=== PATIENT | female | born 1975 | race Caucasian/White ===

== ENCOUNTER → 2021-08-13 13:31 | Outpatient (BNVA) | payer BC, SELFPAY | PROVIDERS: Visit Provider Nurse Practitioner Family | DX: R60.9 Edema, unspecified (principal); I10 Essential (primary) hypertension; R53.83 Other fatigue; R63.8 Other symptoms and signs concerning food and fluid intake; E66.9 Obesity, unspecified | CPT/HCPCS: 80053; 80061; 82306; 84443 ==

== ENCOUNTER → 2021-09-25 10:17 | Outpatient (BNVA) | payer BC, SELFPAY | PROVIDERS: Visit Provider Family Medicine | DX: Z20.822 Contact with and (suspected) exposure to COVID-19 (principal) | CPT/HCPCS: 87635 ==

== ENCOUNTER → 2022-02-01 13:59 | Outpatient (BNVA) | payer BC, SELFPAY | PROVIDERS: Visit Provider Nurse Practitioner Family | DX: J06.9 Acute upper respiratory infection, unspecified (principal); J40 Bronchitis, not specified as acute or chronic; R05.9 Cough, unspecified; F41.9 Anxiety disorder, unspecified; E55.9 Vitamin D deficiency, unspecified; I10 Essential (primary) hypertension; Z84.0 Family history of diseases of the skin and subcutaneous tissue; M25.50 Pain in unspecified joint; M79.10 Myalgia, unspecified site; R53.83 Other fatigue; J30.2 Other seasonal allergic rhinitis | CPT/HCPCS: 80053; 82306; 85651; 86140; 86200; 86431; 86705; 86706; 86709; 86803; 87340 ==

== ENCOUNTER → 2022-06-09 10:39 | Outpatient (BNVA) | payer BC, SELFPAY | PROVIDERS: Visit Provider Nurse Practitioner Family | DX: E55.9 Vitamin D deficiency, unspecified (principal); K21.9 Gastro-esophageal reflux disease without esophagitis; F41.9 Anxiety disorder, unspecified; I10 Essential (primary) hypertension; R53.83 Other fatigue; E66.9 Obesity, unspecified; M25.50 Pain in unspecified joint; M79.10 Myalgia, unspecified site; Z12.31 Encounter for screening mammogram for malignant neoplasm of breast; Z12.11 Encounter for screening for malignant neoplasm of colon; L98.9 Disorder of the skin and subcutaneous tissue, unspecified; J30.2 Other seasonal allergic rhinitis | CPT/HCPCS: 80053; 80061; 82306; 84443; 85025 ==

== ENCOUNTER → 2022-07-16 10:34 | Outpatient (BNVA) | payer BC, SELFPAY | PROVIDERS: Visit Provider Nurse Practitioner Family | DX: Z11.1 Encounter for screening for respiratory tuberculosis (principal) | CPT/HCPCS: 71046 ==

== ENCOUNTER 2022-09-16 06:00 | Outpatient (CLI) | payer BC, SELFPAY | END 2022-09-16 23:59 | disposition home or self-care (01) | LOC: RAD 09-29 13:22 | PROVIDERS: Visit Provider Nurse Practitioner Family | DX: M25.512 Pain in left shoulder (principal) | CPT/HCPCS: 73030 ==

== ENCOUNTER → 2022-10-13 09:02 | Outpatient (BNVA) | payer BC, SELFPAY | PROVIDERS: PCP Nurse Practitioner Family; Visit Provider Nurse Practitioner Family | DX: J32.9 Chronic sinusitis, unspecified (principal); K04.7 Periapical abscess without sinus; I10 Essential (primary) hypertension; E78.2 Mixed hyperlipidemia; J30.2 Other seasonal allergic rhinitis; E55.9 Vitamin D deficiency, unspecified; F41.9 Anxiety disorder, unspecified | CPT/HCPCS: 80053; 80061; 82306 ==

== ENCOUNTER → 2023-04-27 09:28 | Outpatient (BNVA) | payer BC, SELFPAY | PROVIDERS: PCP Nurse Practitioner Family; Visit Provider Nurse Practitioner Family | DX: R05.9 Cough, unspecified (principal); U07.1 COVID-19 | CPT/HCPCS: 87426 ==

== ENCOUNTER → 2023-06-10 11:47 | Outpatient (BNVA) | payer OTHER, SELFPAY | PROVIDERS: PCP Nurse Practitioner Family; Visit Provider Nurse Practitioner Family | DX: J06.9 Acute upper respiratory infection, unspecified (principal); F41.9 Anxiety disorder, unspecified; E55.9 Vitamin D deficiency, unspecified; M25.512 Pain in left shoulder; J30.2 Other seasonal allergic rhinitis; I10 Essential (primary) hypertension; K04.7 Periapical abscess without sinus; H66.92 Otitis media, unspecified, left ear | CPT/HCPCS: 87486; 87581; 87633 ==

== ENCOUNTER → 2023-08-30 09:18 | Outpatient (BNVA) | payer BC, SELFPAY | PROVIDERS: PCP Nurse Practitioner Family; Visit Provider Nurse Practitioner Family | DX: F41.9 Anxiety disorder, unspecified (principal); I10 Essential (primary) hypertension; E78.2 Mixed hyperlipidemia; E55.9 Vitamin D deficiency, unspecified; E66.9 Obesity, unspecified; R63.8 Other symptoms and signs concerning food and fluid intake; M25.512 Pain in left shoulder; J30.2 Other seasonal allergic rhinitis; K04.7 Periapical abscess without sinus | CPT/HCPCS: 80053; 80061; 82306; 84443 ==

== ENCOUNTER 2023-11-25 19:44 | Emergency (ER) | payer BC, SELFPAY ==
[2023-11-25 19:49] VITALS: BP 141/83; PULSE 82; RESP 18; TEMP 36.8; O2SAT 97
--- NOTE | 2023-11-25 20:03 | ED_ITS ---
HPI - Headache General: Chief Complaint: Headache Stated Complaint: sinus infection, dental pain, left ear pain Time Seen by Provider: 11/25/23 19:56 History of Present Illness: Patient presents to the ER with complaints of sore throat dental pain left maxillary sinusitis pressure ear pain said this is normal for her to get during this time year seasonal allergy flareup that she thinks may went to a bacterial sinusitis. She says she normally has to get steroids and antibiotic. Review of Systems General: Reports: 10 or more systems reviewed and unremarkable except in HPI and below PFSH ED PFSH: Medical History GERD (gastroesophageal reflux disease) Insomnia Anxiety Family History Mother , Brain Tumor/Melanoma No problems noted. Social History Smoking and tobacco/nicotine status: current every day tobacco/nicotine user (Smokes 1/2 pack a day) Female Reproductive History: Date of last menstrual period: 11/22/23 Physical Exam Const: COMMON NORMALS: no acute distress, average body habitus, patient oriented x3, no limitations, healthy appearing, alert and well nourished HENMT: COMMON NORMALS: normocephalic, atraumatic, hearing grossly normal bilaterally, external ears normal, EAC's normal, TM's normal bilaterally, moist oral mucous membranes and oropharynx normal HEAD & SCALP: normocephalic and atraumatic FACE & SINUS: Facial tenderness on exam of face and sinuses (Worse over left maxillary sinus) EXTERNAL EAR: Yes external ears normal EXTERNAL AUDITORY CANAL: EAC's normal TYMPANIC MEMBRANE: TM's normal bilaterally Neck/C-Spine: COMMON NORMALS: full ROM, no lymphadenopathy, supple, no meningeal signs, no JVD and Thyroid normal THYROID: Thyroid normal Chest: COMMONS NORMALS: normal inspection of the chest and normal palpation of entire chest wall Resp: COMMON NORMALS: normal respiratory effort, No retractions, No use of accessory muscles and clear to auscultation bilaterally AUSCULTATION: clear to auscultation bilaterally Cardio: COMMON NORMALS: no JVD, regular rate, regular rhythm, S1 normal heart sound present, S2 normal heart sound present, No gallops present (Cardio), No clicks present (Cardio), No murmurs present (Cardio) and No rub (Cardio) RATE: regular rate RHYTHM: regular rhythm HEART SOUNDS: S1 normal heart sound present and S2 normal heart sound present GI: COMMON NORMALS: Normal to inspection, nondistended, normoactive bowel sounds present, Soft to palpation, non-tender, No hepatosplenomegaly present and no masses PALPATION: Yes Soft to palpation and Yes No hepatosplenomegaly present Neuro: COMMON NORMALS: patient oriented x3 SENSORIUM/ORIENTATION: Yes alert MENINGEAL SIGNS: Yes no meningeal signs Course Vital Signs: Vital signs: Vital Signs Temperature 98.2 F 11/25/23 19:49 Pulse Rate 82 11/25/23 19:49 Respiratory Rate 18 11/25/23 19:49 Blood Pressure 141/83 11/25/23 19:49 Pulse Oximetry 97 11/25/23 19:49 Oxygen Delivery Me thod Room Air 11/25/23 19:49 MDM - Headache Medical Decision Making Patient presents to the ER with complaints of headache left maxillary facial sinusitis left ear pain. Gets this every year. Normally requires antibiotics and steroid. Patient be given Augmentin and Decadron in ER and will be sent home with prescription for Augmentin and prednisone. Patient to follow-up with her PCP within approximately 7 days for further evaluation treatment. Differential Diagnosis Likely sinusitis; Unlikely migraine, tension headache, subarachnoid hemorrhage, headache, meningitis or postconcussion syndrome Medical Records I reviewed the patient's medical records. Lab Data I reviewed the patient's lab results. No radiology studies performed this visit Discharge Plan Discharge Patient Disposition: Home Clinical Impression: Acute bacterial sinusitis Condition: Stable Prescriptions: New prednisone 50 mg tablet 50 mg PO DAILY Qty: 5 0RF amoxicillin-pot clavulanate 875-125 mg tablet 1 tab PO Q12H Qty: 20 0RF No Action tretinoin 0.1 % cream 1 applic topical DAILY Qty: 45 4RF Rx Instructions: Apply pea-sized amount to face, chest and back nightly. clobetasol 0.05 % solution 1 applic topical BID 14 Days Qty: 50 3RF Rx Instructions: Apply a few drops to itchy areas on scalp as needed. (DME) pen needle, diabetic [Advocate Pen Needle] 33 gauge x 5/32 needle See Rx Instructions .Route Qty: 100 2RF Rx Instructions: As directed buspirone 10 mg tablet 5 mg PO BID 90 Days Qty: 90 1RF cholecalciferol (vitamin D3) 250 mcg (10,000 unit) capsule 250 mcg PO DAILY 90 Days Qty: 90 1RF cyclobenzaprine 10 mg tablet 10 mg PO TID PRN (Reason: muscle spasm) Qty: 90 1RF diclofenac sodium [Voltaren Arthritis Pain] 1 % gel 4 g topical QID Qty: 100 4RF fexofenadine-pseudoephedrine [Kalli-D 12 Hour] 60-120 mg tablet extended release 12 hr 1 tab PO Q12H PRN (Reason: allergy symptoms) Qty: 30 0RF furosemide 20 mg tablet 20 mg PO DAILY 90 Days Qty: 90 1RF ibuprofen 800 mg tablet 800 mg PO TID Qty: 90 1RF triamterene-hydrochlorothiazid 75-50 mg tablet 1 tab PO DAILY Qty: 90 1RF Victoza 3-Toy 0.6 mg/0.1 mL (18 mg/3 mL) pen injector 3 mg SUBCUT Q24H 30 Days Qty: 15 2RF Discharge Orders: Discharge ED (Routine); Ordered 11/25/23 Ordered By: Willy Jeff Referrals: Giana Callaway NP [Primary Care Provider] - 1 week Patient Instructions: Sinusitis (ED) Activity Restrictions/Additional Instructions: Please take all your antibiotics and steroids as directed. Please follow-up with your primary care practitioner in the next 7 days for further evaluation treatment as needed. Coding Level of Care Code ED Breaker Oiler for Vishnu Xie
[2023-11-25] MEDS: dexamethasone 10 mg/mL INJ IM (20:26)
[2023-11-25] MEDS: amoxicillin-clav 875-125 mg Tablet 1 TAB PO (20:26)
[2023-11-25] MEDS: acetaminophen 500 mg Tablet 1000 MG PO (20:32)
== END 2023-11-25 20:59 | disposition home or self-care (01) ==
PROVIDERS: Emergency Provider Emergency Medicine; PCP Nurse Practitioner Family
DX: J01.90 Acute sinusitis, unspecified (principal); B96.89 Other specified bacterial agents as the cause of diseases classified elsewhere; F17.210 Nicotine dependence, cigarettes, uncomplicated
CPT/HCPCS: 96372; 99284; J1100

== ENCOUNTER 2024-03-19 17:14 | Emergency (ER) | payer BC, SELFPAY ==
[2024-03-19] VITALS (7 sets, daily range): BP systolic 125–164; BP diastolic 81–107; PULSE 77–88; RESP 14–19; TEMP 36.8; O2SAT 93–96; BMI 32.8
--- NOTE | 2024-03-19 17:20 | XRR_ITS ---
PROCEDURE INFORMATION: Exam: XR Chest Exam date and time: 03/19/2024 5:23 PM Age: 48 years old Clinical indication: Other: Weakness; Additional info: Cp TECHNIQUE: Imaging protocol: Radiologic exam of the chest. Views: 1 view. COMPARISON: CR XR chest 2V* [id number] 07/16/2022 10:47 AM FINDINGS: Lungs: Unremarkable. No consolidation. Pleural spaces: Unremarkable. No pleural effusion. No pneumothorax. Heart/Mediastinum: Unremarkable. No cardiomegaly. Bones/joints: Unremarkable. XR/XR chest 1V portable [id number] IMPRESSION: No acute findings.
--- NOTE | 2024-03-19 17:24 | W.ED.WEAKNES ---
HPI - Weakness General: Chief complaint: Weakness Stated complaint: WEAKNESS Time Seen by Provider: 03/19/24 17:14 Source: patient and EMS Limitations: no limitations History of Present Illness: 48-year-old female states she had been hiking bed roughly been 3 miles on a hike and states started to feel short of breath and having chest pain felt like she could not breathe. EMS called states that since being out of there she is feeling improved. She denies any vomiting or diarrhea. Associated symptoms: Reports chest pain; Denies chills, fever(s), headache(s), nausea or vomiting Review of Systems Const: Denies: fever(s), chills, body aches or change in appetite ENMT: Denies: throat pain or dental pain Card: Reports: chest pain Resp: Denies: dyspnea GI: Denies: abdominal pain, nausea, vomiting or diarrhea Musc: Denies: neck pain or back pain Skin/Breast: Denies: rash Neuro: Denies: headache(s) PFSH ED PFSH: Medical History GERD (gastroesophageal reflux disease) Insomnia Anxiety Family History Mother , Brain Tumor/Melanoma No problems noted. Social History Smoking and tobacco/nicotine status: current every day tobacco/nicotine user (Smokes 1/2 pack a day) Physical Exam Const: COMMON NORMALS: no acute distress, patient oriented x3 and healthy appearing HENMT: COMMON NORMALS: normocephalic and atraumatic HEAD & SCALP: normocephalic and atraumatic Neck/C-Spine: COMMON NORMALS: full ROM and supple Chest: COMMONS NORMALS: normal inspection of the chest Resp: COMMON NORMALS: normal respiratory effort, No retractions, No use of accessory muscles and clear to auscultation bilaterally AUSCULTATION: clear to auscultation bilaterally Cardio: COMMON NORMALS: regular rate, regular rhythm and No murmurs present (Cardio) RATE: regular rate RHYTHM: regular rhythm GI: COMMON NORMALS: Normal to inspection, nondistended, normoactive bowel sounds present, Soft to palpation, non-tender and no masses PALPATION: Yes Soft to palpation Extremity: COMMON NORMALS: normal to inspection and full ROM Neuro: COMMON NORMALS: patient oriented x3, moves all extremities and no focal motor deficits Psych: COMMON NORMALS: mental status grossly normal, Normal thought process present and cooperative THOUGHT PROCESS: Normal thought process present Skin: COMMON NORMALS: no rashes or lesions noted and no wounds GENERAL SKIN EXAM: no rashes or lesions noted Course Vital Signs: Vital signs: Vital Signs Temperature 98.2 F 03/19/24 17:18 Pulse Rate 77 03/19/24 20:00 Respiratory Rate 16 03/19/24 18:30 Blood Pressure 136/91 03/19/24 18:23 Pulse Oximetry 93 03/19/24 20:00 Oxygen Delivery Me thod Room Air 03/19/24 20:00 MDM - Weakness Medical Decision Making Patient presents here with chest pain while feeling fatigued she had been on a hike she feels improved here she does have a mild headache since proved after Toradol patient is EKG his heart enzymes blood work here are all normal patient stable for discharge follow-up PCP return if worsening. Medical Records I reviewed the patient's medical records. Lab Data I reviewed the patient's lab results. 03/19/24 17:24 03/19/24 17:24 Radiology Impressions Chest X-Ray 03/19/24 17:20 IMPRESSION: No acute findings. Laboratory Results WBC 17.94 10^3/uL (3.29-11.43) H 03/19/24 17:24 RBC 4.90 10^6/uL (3.85-5.65) 03/19/24 17:24 Hgb 14.70 g/dL (11.27-16.99) 03/19/24 17:24 Hct 43.3 % (36-47) 03/19/24 17:24 MCV 88.4 fl (85-98) 03/19/24 17: MCH 30.0 pg (27-33) 03/19/24 17: MCHC 33.9 g/dL (30-55) 03/19/24 17:24 RDW 13.7 % (12.1-15.1) 03/19/24 17:24 Plt Count 313 10^3/cmm (157-399) 03/19/24 17:24 MPV 11.7 fL (7.4-10.4) H 03/19/24 17:24 Neut % (Auto) 74.2 % 03/19/24 17:24 Lymph % (Auto) 20.1 % 03/19/24 17:24 [place] % (Auto) 4.2 % 03/19/24 17:24 Eos % (Auto) 0.5 % 03/19/24 17:24 Baso % (Auto) 0.6 % 03/19/24 17: Neut # (Auto) 13.31 10^3/uL (1.8-7.7) H 03/19/24 17:24 Lymph # (Auto) 3.6 10^3/uL (0.8-4.8) 03/19/24 17:24 [place] # (Auto) 0.8 10^3/uL (0.2-0.9) 03/19/24 17:24 Eos # (Auto) 0.1 10^3/uL (0.0-0.8) 03/19/24 17: Baso # (Auto) 0.1 10^3/uL (0.0-0.1) 03/19/24 17: Nucleated RBC % (auto) 0 % 03/19/24 17: Nucleated RBCs # 0.0 /100WBC 03/19/24 17:24 Sodium 133 mmol/L (136-145) L 03/19/24 17:24 Potassium 3.8 mmol/L (3.5-5.1) 03/19/24 17:24 Chloride 92 mmol/L (98-107) L 03/19/24 17:24 Carbon Dioxide 26 mmol/L (22-29) 03/19/24 17:24 Anion Gap 18.8 (5-19) 03/19/24 17:24 BUN 20 mg/dL (6-20) 03/19/24 17:24 Creatinine 0.9 mg/dL (0.5-0.9) 03/19/24 17:24 GFR Calculation 67.1 mL/min (90-130) L 03/19/24 17:24 Glucose 110 mg/dL (65-115) 03/19/24 17:24 Calculated Osmolality 279 mOsm/kg (285-295) L 03/19/24 17:24 Calcium 9.3 mg/dL (8.5-10.5) 03/19/24 17:24 Total Bilirubin 0.2 mg/dL (0.15-1.2) 03/19/24 17:24 AST 20 U/L (0-32) 03/19/24 17:24 ALT 26 U/L (0-33) 03/19/24 17:24 Alkaline Phosphatase 88 U/L (35-105) 03/19/24 17:24 Creatine Kinase 181 U/L (26-192) 03/19/24 17:24 Troponin T Baseline 14 ng/L (0-10) H 03/19/24 17:24 Troponin T 120 Minute 13.01 ng/L (0-10) H 03/19/24 19:18 Delta Troponin T -0.99 ABS# (0-10) L 03/19/24 19:18 Total Protein 7.1 g/dL (6.6-8.7) 03/19/24 17:24 Albumin 4.5 g/dL (3.5-5.2) 03/19/24 17:24 Globulin 2.6 g/dL (1.3-4.6) 03/19/24 17:24 Lipase 10 U/L (13-60) L 03/19/24 17:24 Urine Color Yellow (Yellow) 03/19/24 18:20 Urine Appearance Slightly cloudy (CLEAR) 03/19/24 18:20 Urine pH 5 (5-7) 03/19/24 18:20 Ur Specific [place] 1.010 (1.005-1.030) 03/19/24 18:20 Urine Protein Neg (Negative) 03/19/24 18:20 Urine Glucose (UA) Norm (Normal) 03/19/24 18:20 Urine Ketones Negative (Negative) 03/19/24 18:20 Urine Blood 2+ (Negative) H 03/19/24 18:20 Urine Nitrate Negative (Negative) 03/19/24 18:20 Urine Bilirubin Neg (Negative) 03/19/24 18:20 Urine Urobilinogen Norm mg/dL (Negative) 03/19/24 18:20 Ur Leukocyte Esterase Negative (Negative) 03/19/24 18:20 Urine RBC 0-4 /hpf (0-2) H 03/19/24 18:20 Urine WBC Rare /hpf (0-5) 03/19/24 18:20 Ur Squamous Epith Cells 0-4 /hpf (0-5) H 03/19/24 18:20 Amorphous Sediment Not Reportable 03/19/24 18:20 Urine Bacteria 1+ /hpf (NONE) H 03/19/24 18:20 All radiology interpretation(s) finalized by discharge EKG Data EKG 1: I personally reviewed and interpreted this EKG as follows: EKG interpretation date: 03/19/24 EKG interpretation time: 17:31 Interpretation: nsr hr [address] or t wave abnormalities qrs 92 qtc 417 Discharge Plan Discharge Patient Disposition: Home Clinical Impression: Chest pain Condition: Stable Prescriptions: No Action tretinoin 0.1 % cream 1 applic topical DAILY Qty: 45 4RF Rx Instructions: Apply pea-sized amount to face, chest and back nightly. clobetasol 0.05 % solution 1 applic topical BID 14 Days Qty: 50 3RF Rx Instructions: Apply a few drops to itchy areas on scalp as needed. (DME) pen needle, diabetic [Advocate Pen Needle] 33 gauge x 5/32 needle See Rx Instructions .Route Qty: 100 2RF Rx Instructions: As directed cholecalciferol (vitamin D3) 250 mcg (10,000 unit) capsule 250 mcg PO DAILY 90 Days Qty: 90 1RF cyclobenzaprine 10 mg tablet 10 mg PO TID PRN (Reason: muscle spasm) Qty: 90 1RF diclofenac sodium [Voltaren Arthritis Pain] 1 % gel 4 g topical QID Qty: 100 4RF furosemide 20 mg tablet 20 mg PO DAILY 90 Days Qty: 90 1RF ibuprofen 800 mg tablet 800 mg PO TID Qty: 90 1RF triamterene-hydrochlorothiazid 75-50 mg tablet 1 tab PO DAILY Qty: 90 1RF Victoza 3-Toy 0.6 mg/0.1 mL (18 mg/3 mL) pen injector 3 mg SUBCUT Q24H 30 Days Qty: 15 2RF buspirone 10 mg tablet 5 mg PO BID 90 Days Qty: 90 1RF fexofenadine-pseudoephedrine [Kalli-D 12 Hour] 60-120 mg tablet extended release 12 hr 1 tab PO Q12H PRN (Reason: allergy symptoms) Qty: 30 0RF Discharge Orders: Discharge ED (Routine); Ordered 03/19/24 Ordered By: Daksha Hitchcock Referrals: Giana Callaway NP [Primary Care Provider] - 4-7 days Discharge Diet: Advance as tolerated Discharge Activity: Resume usual activity Patient Instructions: Chest Pain (ED) Coding Level of Care Code ED Senior Financial Reporting Analyst for Vishnu Xie
--- NOTE | 2024-03-19 17:31 | ECG_ITS ---
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 Measurements Intervals [place] Rate: 75 P: 59 WY: 146 QRS: 56 QRSD: 92 T: 54 QT: 388 QTc: 435 Interpretive Statements SINUS RHYTHM POSSIBLE LEFT ATRIAL ENLARGEMENT [-0.1mV P-WAVE IN V1/V2] No previous ECG available for comparison Electronically Signed On 03-20-2024 8:29:27 CDT by Regino Childress M.D. [email or web address]
[2024-03-19 17:33] LABS: Basophils # 0.1 10^3/uL (0.0-0.1); Basophils % 0.6 %; Eosinophils # 0.1 10^3/uL (0.0-0.8); Eosinophils % 0.5 %; Hematocrit 43.3 % (36-47); Lymphocytes # 3.6 10^3/uL (0.8-4.8); Lymphocytes % 20.1 %; Mean Corpuscular HGB Conc 33.9 g/dL (30-55); Mean Corpuscular Volume 88.4 fl (85-98); Mean Platelet Volume 11.7 fL (7.4-10.4); Monocytes # 0.8 10^3/uL (0.2-0.9); Monocytes % 4.2 %; Neutrophils # 13.31 10^3/uL (1.8-7.7); Neutrophils % 74.2 %; Nucleated Red Blood Cells % 0 %; Platelet Count 313 10^3/cmm (157-399); Red Cell Distribution Width 13.7 % (12.1-15.1); White Blood Count 17.94 10^3/uL (3.29-11.43)
[2024-03-19 17:53] LABS: Alanine Aminotransferase 26 U/L (0-33); Albumin Level 4.5 g/dL (3.5-5.2); Alkaline Phosphatase 88 U/L (35-105); Blood Urea Nitrogen 20 mg/dL (6-20); Calcium 9.3 mg/dL (8.5-10.5); Carbon Dioxide 26 mmol/L (22-29); Chloride 92 mmol/L (98-107); Creatinine Clr Calc Pharmacy 88.3354; Globulin 2.6 g/dL (1.3-4.6); Glomerular Filtration Rate 67.1 mL/min (90-130); Glucose 110 mg/dL (65-115); Lipase 10 U/L (13-60); Osmolality Calculated 279 mOsm/kg (285-295); Sodium 133 mmol/L (136-145); Total Bilirubin 0.2 mg/dL (0.15-1.2); Total Protein 7.1 g/dL (6.6-8.7)
[2024-03-19 17:54] LABS: Troponin(5th) Baseline 14 ng/L (0-10)
[2024-03-19 17:57] LABS: Anion Gap 18.8 (5-19); Potassium 3.8 mmol/L (3.5-5.1)
[2024-03-19 17:58] LABS: Aspartate Amino Transferase 20 U/L (0-32)
[2024-03-19] MEDS: sodium chloride 0.9% 1,000 ML 999 ML IV (18:17)
[2024-03-19 18:18] LABS: Creatine Phosphokinase 181 U/L (26-192)
[2024-03-19 18:33] LABS: Blood Urine 2+ (Negative); Glucose Urine UA Norm (Normal); Ketones Urine Negative (Negative); Protein Urine Neg (Negative); Urine Appearance Slightly Cloudy (CLEAR); Urine Color Yellow (Yellow); pH Urine 5 (5-7)
[2024-03-19 18:34] LABS: Add Urine Culture? No; Add Urine Microscopic? YES; Bacteria Urine 1+ /hpf; Bilirubin Urine Neg (Negative); Leukocyte Esterase Urine Negative (Negative); Nitrate Urine Negative (Negative); RBC Urine 0-4 /hpf (0-2); Squamous Epithelial Cell Urine 0-4 /hpf (0-5); Urobilinogen Urine Norm (Negative); WBC Urine RARE /hpf (0-5)
--- NOTE | 2024-03-19 19:20 | ECG_ITS ---
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 Measurements Intervals [place] Rate: 74 P: 61 SD: 168 QRS: 43 QRSD: 80 T: 36 QT: 420 QTc: 468 Interpretive Statements SINUS RHYTHM POSSIBLE LEFT ATRIAL ENLARGEMENT [-0.1mV P-WAVE IN V1/V2] SEPTAL MYOCARDIAL INFARCTION , OF INDETERMINATE AGE [40+ ms Q WAVE IN V1/V2] Compared to ECG 03/19/2024 17:31:42 Myocardial infarct finding now present Electronically Signed On 03-20-2024 8:30:48 CDT by Regino Childress M.D. [id number]
[2024-03-19 19:39] LABS: Troponin 5 2HR 13.01 ng/L (0-10)
[2024-03-19 19:40] LABS: Troponin 5 2HR Delta -0.99 ABS# (0-10)
[2024-03-19] MEDS: sodium chloride 0.9% 1,000 ML 1000 ML IV (20:14)
[2024-03-19] MEDS: ondansetron 2 mg/ML SDV 2 mL 4 MG IVP (20:15)
[2024-03-19] MEDS: ketorolac 30 mg/mL INJ IVP (20:17)
== END 2024-03-19 21:13 | disposition home or self-care (01) ==
PROVIDERS: Emergency Provider Emergency Medicine; PCP Nurse Practitioner Family
DX: R07.9 Chest pain, unspecified (principal); F17.210 Nicotine dependence, cigarettes, uncomplicated
CPT/HCPCS: 36415; 71045; 80053; 81001; 82550; 83690; 84484; 85025; 93005; 96374; 96375; 99285; J1885; J2405; J7030

== ENCOUNTER 2024-05-21 08:45 | Outpatient (CLI) | payer BC, SELFPAY ==
--- NOTE | 2024-05-21 08:46 | USCV_ITS ---
Chelita Valdez Age: 49 Gender: F : 1975 Exam Date: 05/21/2024 09:07 Ordering Phys: Giana Callaway NP Technologist: CT Exam [place] [facility] [place] Indication: cp BP: / HR: 76 Rhythm: Sinus Technical Quality: Adequate MEASUREMENTS (Male / Female) Normal Values 2D ECHO LVOT Diameter 2.0 cm LV Ejection Fraction MOD 4C 63.3 % LV Ejection Fraction MOD 2C 64.9 % LV Ejection Fraction 2C AL 64.9 % LA Diameter 2.8 cm RA Systolic Volume 4C AL 26.1 ml RA Systolic Volume 4C MOD 25.2 ml LA Sys Volume AL 44.6 cm cubed Aorta at Sinotubular Diameter 1.8 cm IVC Diameter 1.9 cm M-MODE LA Ao Ratio MM 1.1 AV Cusp Separation MM 2.2 cm DOPPLER AV Peak Velocity 139.0 cm/s LVOT Peak Velocity 126.0 cm/s AV Area Cont Eq vti 3.2 cm squared AV Area Cont Eq pk 2.9 cm squared MV Peak Velocity 98.0 cm/s MV Area PHT 4.2 cm squared Mitral E to A Ratio 1.0 TV Peak Velocity 152.0 cm/s TR Peak Velocity 164.0 cm/s TR Peak Gradient 10.8 mmHg TV Peak E Velocity 72.0 cm/s Right Atrial Pressure 3.0 mmHg Pulmonary Artery Systolic Pressu 13.8 mmHg PV Peak Velocity 112.0 cm/s FINDINGS Left Ventricle Left ventricle is normal in size. LV systolic function is normal with EF of 55-60%. No regional wall motion abnormalities are seen. Right Ventricle Normal in size and function Right Atrium Normal in size Left Atrium Normal in size Mitral Valve Structurally normal mitral valve. Trace mitral regurgitation. Aortic Valve Structurally normal aortic valve. No significant stenosis or regurgitation. Tricuspid Valve Insufficient TR jet to calculate RVSP Pulmonic Valve Not well visualized Pericardium Normal Aorta Normal in size IVC Appears to be normal CONCLUSIONS LV systolic function is normal with EF of 55 to 60%. Trace mitral regurgitation. No comparison studies are available. Regino Childress MD (Electronically Signed) Final Date: 21 May 2024 12:06 S
== END 2024-05-21 08:46 | disposition home or self-care (01) ==
LOC: RAD 08:45
PROVIDERS: PCP Nurse Practitioner Family; Visit Provider Nurse Practitioner Family
DX: R94.31 Abnormal electrocardiogram [ECG] [EKG] (principal); R07.9 Chest pain, unspecified; I10 Essential (primary) hypertension
CPT/HCPCS: 93306

== ENCOUNTER → 2024-06-25 12:48 | Outpatient (BNVA) | payer BC, SELFPAY | PROVIDERS: PCP Nurse Practitioner Family; Visit Provider Nurse Practitioner Family | DX: I10 Essential (primary) hypertension (principal); E78.2 Mixed hyperlipidemia; E55.9 Vitamin D deficiency, unspecified | CPT/HCPCS: 80053; 80061; 82306; 84443; 85025 ==

== ENCOUNTER 2024-08-14 11:38 | Outpatient (CLI) | payer BC, SELFPAY ==
--- NOTE | 2024-08-14 11:40 | MM_ITS ---
WS: [id number] Bilateral screening 3D tomosynthesis digital mammogram, 08/14/2024 11:55 AM Clinical Data: Z12.39 - Encounter for other screening for malignant neop... Comparison: None. Findings: No spiculated masses or clustered calcifications are seen. There are no secondary signs of carcinoma . MM/MM scr BI tomosynthesis [id number] Impression: Negative bilateral mammogram with no prior exam for review. Recommend annual screening mammograms. BIRADS: 1 - Negative. FOLLOW UP: 1 Year Follow-up DENSITY: There are scattered areas of fibroglandular density. 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
== END 2024-08-14 11:39 | disposition home or self-care (01) ==
LOC: MOBLMAM 11:40
PROVIDERS: PCP Nurse Practitioner Family; Visit Provider Nurse Practitioner Family
DX: Z12.31 Encounter for screening mammogram for malignant neoplasm of breast (principal)
CPT/HCPCS: 77063; 77067

== ENCOUNTER → 2025-01-10 11:29 | Outpatient (BNVA) | payer BC, SELFPAY | PROVIDERS: PCP Nurse Practitioner Family; Visit Provider Nurse Practitioner Family | DX: I10 Essential (primary) hypertension (principal) | CPT/HCPCS: 80053; 80061; 84443; 85025 ==

== ENCOUNTER 2025-04-04 21:37 | Emergency (ER) | payer BC, SELFPAY ==
[2025-04-04 21:47] VITALS: BP 101/70; PULSE 78; RESP 16; TEMP 36.6; O2SAT 100; BMI 28.5
[2025-04-05] MEDS: tetanus-dipt-pertussis 0.5 mL SDV IM (00:01)
--- NOTE | 2025-04-05 00:51 | W.ED.WOUNDLC ---
HPI - Wound/Laceration General: Chief Complaint: Wound/Laceration Stated Complaint: laceration on palm of hand Time Seen by Provider: 04/04/25 23:17 Source: patient Mode of arrival: ambulatory Limitations: no limitations History of Present Illness: Patient is a 49-year-old female who presents the emergency department for laceration to her right hand. States that she was trying to cut through a epoxy, it slipped and cut her over the right thenar eminence. Pain is rated as a 9/10, has not take anything for the pain. Tetanus not up-to-date. Bleeding controlled on arrival with direct pressure. No neurovascular symptoms reported. Extremity Location: Right: hand Place: home Patient tetanus UTD: No Context: accidental Associated symptoms: Denies chills, fever(s), nausea or vomiting Related Data Previous Rx's ?Medication ?Instructions ?Recorded clobetasol 0.05 % scalp solution 1 applic topical BID 2 weeks #50 mL 10/19/22 tretinoin 0.1 % topical cream 1 applic topical DAILY #45 grams 10/19/22 bisoprolol fumarate 5 mg tablet 5 mg PO DAILY PRN palpitations 30 06/25/24 days #30 tabs buspirone 10 mg tablet 5 mg (1/2 x 10 mg) PO BID 90 days 01/10/25 #90 tabs cholecalciferol (vitamin D3) 250 250 mcg PO DAILY 90 days #90 caps 01/10/25 mcg (10,000 unit) capsule fluticasone propionate 50 2 spray intranasal BID Allergic 01/10/25 mcg/actuation nasal rhinitis #16 grams spray,suspension (Flonase Allergy Relief) furosemide 20 mg tablet 20 mg PO DAILY 90 days #90 tabs 01/10/25 liraglutide 0.6 mg/0.1 mL (18 mg/3 1.8 mg (0.3 mL) SUBCUT Q24H 30 01/10/25 mL) subcutaneous pen injector days #9 mL (Victoza 3-Toy) lisinopril 10 mg tablet See Rx Instructions .Route 01/10/25 .COMPLEX #30 tabs cephalexin 500 mg capsule 500 mg PO Q6H 3 days #12 caps 04/05/25 Allergies Allergy/AdvReac Type Severity Reaction Status Date / Time Latex, Natural Rubber Allergy Intermediate Unknown Verified 11/21/24 09:14 Review of Systems General: Reports: 10 or more systems reviewed and unremarkable except in HPI and below Const: Denies: fever(s) or chills Card: Denies: chest pain Resp: Denies: dyspnea GI: Denies: abdominal pain, nausea, vomiting or diarrhea Musc: Denies: extremity pain or joint pain Skin/Breast: Reports: skin pain, skin tenderness and new lesions (Laceration right hand); Denies: rash Neuro: Denies: headache(s) PFSH ED PFSH: Medical History GERD (gastroesophageal reflux disease) Insomnia Anxiety Family History Mother , Brain Tumor/Melanoma No problems noted. Social History Smoking and tobacco/nicotine status: never used tobacco/nicotine Physical Exam Const: COMMON NORMALS: no acute distress, average body habitus, patient oriented x3, no limitations, healthy appearing, alert and well nourished HENMT: COMMON NORMALS: normocephalic and atraumatic HEAD & SCALP: normocephalic and atraumatic Neck/C-Spine: COMMON NORMALS: full ROM, no lymphadenopathy, supple and no meningeal signs Resp: COMMON NORMALS: normal respiratory effort, No use of accessory muscles and clear to auscultation bilaterally AUSCULTATION: clear to auscultation bilaterally Cardio: COMMON NORMALS: regular rate and regular rhythm RATE: regular rate RHYTHM: regular rhythm Extremity: COMMON NORMALS: full ROM and capillary refill normal Neuro: COMMON NORMALS: patient oriented x3, moves all extremities, no focal motor deficits and no sensory deficits noted SENSORIUM/ORIENTATION: Yes alert MENINGEAL SIGNS: Yes no meningeal signs Skin: COMMON NORMALS: turgor normal NARRATIVE SKIN EXAM: Superficial 1.5 cm laceration of the right thenar eminence with no active bleeding. No foreign body or contamination. GENERAL SKIN EXAM: turgor normal Procedures Laceration Laceration 1: Site: hand Side (If applicable): right Size (cm): 1.5 Description: linear Depth: simple, single layer Local Anesthetic: lidocaine 1% and with epi Amount of anesthesia used (mL): 3 Pre-repair: wound explored Skin layer closed with: nylon Size (cm): 5-0 Number of sutures: 3 Technique: simple, interrupted Course Vital Signs: Vital signs: Vital Signs Temperature 97.8 F 04/04/25 21:47 Pulse Rate 78 04/04/25 21:47 Respiratory Rate 16 04/04/25 21:47 Blood Pressure 101/70 04/04/25 21:47 Pulse Oximetry 100 04/04/25 21:47 Oxygen Delivery Me thod Room Air 04/04/25 21:47 MDM - Wound/Laceration Medical Decision Making Cut her right hand with a knife, no active bleeding on arrival. Wound was repaired here, she had no distal neurovascular deficits on exam. Full strength in her hand, obviously no through and through injury. The wound was probed, depth of the wound visualized and is superficial in nature. Will be treated with prophylactic antibiotics for a couple of days, tetanus was also updated. Proper wound care of the laceration was discussed in nature. No radiology studies performed this visit Discharge Plan Discharge Patient Disposition: Home Clinical Impression: Laceration of right hand Condition: Stable Prescriptions: New cephalexin 500 mg capsule 500 mg PO Q6H 3 Days Qty: 12 0RF No Action tretinoin 0.1 % cream 1 applic topical DAILY Qty: 45 4RF Rx Instructions: Apply pea-sized amount to face, chest and back nightly. clobetasol 0.05 % solution 1 applic topical BID 14 Days Qty: 50 3RF Rx Instructions: Apply a few drops to itchy areas on scalp as needed. bisoprolol fumarate 5 mg tablet 5 mg PO DAILY PRN (Reason: palpitations) 30 Days Qty: 30 0RF liraglutide [Victoza 3-Toy] 0.6 mg/0.1 mL (18 mg/3 mL) pen injector 1.8 mg SUBCUT Q24H 30 Days Qty: 9 2RF furosemide 20 mg tablet 20 mg PO DAILY 90 Days Qty: 90 1RF cholecalciferol (vitamin D3) 250 mcg (10,000 unit) capsule 250 mcg PO DAILY 90 Days Qty: 90 1RF buspirone 10 mg tablet 5 mg PO BID 90 Days Qty: 90 1RF lisinopril 10 mg tablet See Rx Instructions .ROUTE .COMPLEX Qty: 30 4RF Dose Instruction: Take 1 tablet by mouth once daily Rx Instructions: Take 1 tablet by mouth once daily fluticasone propionate [Flonase Allergy Relief] 50 mcg/actuation spray,suspension 2 spray intranasal BID Qty: 16 1RF Rx Instructions: administer into each nostril Discharge Orders: Discharge ED (Routine); Ordered 04/05/25 Ordered By: Alessandro Herrera Referrals: Jigna Chavez FNP-C [Primary Care Provider, Family Practice] Patient Instructions: Patient Portal & [facility] Instructions Activity Restrictions/Additional Instructions: Palm laceration care Thank you for coming in today. A cut on the right palm was cleaned and repaired with three stitches (sutures). The stitches do not dissolve and will need to be removed. Wound care at home - Keep the initial bandage on and dry for the first 24 hours unless it becomes wet or dirty. - After 24 hours, it is okay to gently get the area wet (shower or handwashing). Pat dry; do not soak the hand (no baths, dishwashing in a sink, pools, or hot tubs) until the stitches are removed. - Clean the wound once daily: wash hands first, then gently rinse the area with clean tap water; mild soap is okay around (not inside) the cut. No harsh scrubbing. There is no benefit to using iodine or antibacterial solutions for a clean wound. - Apply a thin layer of plain petrolatum (Vaseline) and cover with a clean, nonstick, occlusive bandage. Change the bandage daily or if it becomes wet or dirty. A moist, covered environment helps healing. - Elevate the hand above heart level when possible for the first 24?48 hours to reduce swelling. - Use the hand gently. Avoid heavy gripping, pulling, or contact sports until the stitches are out and the wound is closed. Stitches removal - Plan to have the stitches removed in 10?14 days, typical for palm/hand skin where tension is higher. If the edges are not fully healed at 10 days, removal may be closer to 14 days. Medicine prescribed today - Cephalexin (Keflex) 500 mg by mouth four times a day for 3 days. - Start with the first dose this evening. Take doses evenly spaced during waking hours. - Common side effects: stomach upset, diarrhea, rash. Stop and seek care urgently for swelling of lips/face, trouble breathing, or severe rash. - This short course is being used as a precaution. Most simple cuts do not need antibiotics when well cleaned and closed; decisions are individualized. Tetanus shot - A tetanus vaccine was given today to keep immunizations up to date, consistent with national recommendations for wound care. Pain control - Use acetaminophen or ibuprofen as needed, unless another doctor has advised against these. Avoid aspirin in the first 24 hours if possible, as it may increase bleeding. Signs of problems ? when to seek help - Increasing redness spreading from the wound, warmth, swelling, or pus - Fever (temperature 100.4?F / 38?C or higher) - Worsening pain after the first 48 hours - Red streaks up the hand or arm, or swollen/tender lymph nodes - Numbness, tingling, weakness, trouble moving a finger, or color change of the fingers - Stitches come out early or the wound opens If any of these occur, contact the clinic or go to urgent care/emergency care. Hand hygiene and activity tips - Wash hands regularly. After washing, pat the bandage dry or replace it if wet. - Keep work and sports activities light until after stitch removal and the wound is closed. - Do not apply antibiotic ointments containing multiple agents if irritation occurs; petrolatum is sufficient for clean wounds. Follow-up - Appointment for suture removal: in 10?14 days. - Return sooner for any concerns listed above. Why these steps matter - Careful cleaning/irrigation, keeping the wound covered, and timely stitch removal are the main ways to prevent infection and scarring in simple cuts. Routine antibiotics are usually not needed for clean, simple lacerations, but clinicians sometimes prescribe a short course based on individual risks and wound features. Print Language: Bol[place]ian Coding Level of Care Code ED [employer] for Vishnu [employer]ie
== END 2025-04-05 00:11 | disposition home or self-care (01) ==
PROVIDERS: Emergency Provider Physician Assistant; PCP Nurse Practitioner Family
DX: S61.411A Laceration without foreign body of right hand, initial encounter (principal); W26.9XXA Contact with unspecified sharp object(s), initial encounter
CPT/HCPCS: 12001; 90471; 90715; 99283